=== PATIENT | male | born 1950 | race Caucasian/White ===

== ENCOUNTER 2018-12-31 13:41 | Emergency (ER) | payer MEDICARE, OTHER ==
[~2018-12-31] VITALS: Ht 175.3 cm; Wt 102.1 kg
--- NOTE | 2018-12-31 14:16 | NUR ---
PATIENT WAS SEEN BY .. HE IS A/A/O X3 IN NO DISTRESS. CT SCAN IN PROCESS....
--- NOTE | 2018-12-31 15:13 | NUR ---
DC, RX AND FOLLOW UP INSTRUCTIONS GIVEN AND EXPLAINED TO PATIENT WHO STATES HE UNDERSTANDS ALL INSTRUCTIONS.
== END 2018-12-31 15:16 | disposition home or self-care (01) ==
LOC: ER 13:41
DX: S09.90XA Unspecified injury of head, initial encounter (principal); M54.9 Dorsalgia, unspecified; M54.2 Cervicalgia; M25.512 Pain in left shoulder; M79.605 Pain in left leg; R20.2 Paresthesia of skin; V49.49XA Driver injured in collision with other motor vehicles in traffic accident, initial encounter; Y93.89 Activity, other specified; Y92.89 Other specified places as the place of occurrence of the external cause; Y99.8 Other external cause status
CPT/HCPCS: 70450; 72125